=== PATIENT | female | born 1950 | race African-American/Black ===

== ENCOUNTER 2017-05-22 15:15 | Inpatient (IN) | payer OTHER ==
[2017-05-22 15:51] LABS: Hemoglobin 16.2 g/dL (12.0-16.0); Mean Corpuscular HGB CONC 32.7 g/dL (32.0-36.0); Mean Corpuscular Hemoglobin 31.4 pg (27.0-31.0); Mean Corpuscular Volume 96.1 fl (81.0-99.0); Mean Platelet Volume 7.8 fL (7.4-10.4); Platelet Count 140 thou/uL (130-400); RBC Distribution Width 12.5 % (11.5-14.5); Red Blood Cell (RBC) Count 5.16 mill/uL (4.20-5.40); White Blood Cell (WBC) Count 3.7 thou/uL (4.8-10.8)
--- NOTE | 2017-05-22 15:52 | RAD ---
FRONTAL VIEW CHEST: COMPARISON: 08/02/11. INDICATION: Dyspnea, shortness of breath with cardiac arrhythmia. FINDINGS: There is diffuse pulmonary parenchymal consolidation throughout the right lung with relative sparring at the apex. There is also a prominent region of alveolar infiltration and interstitial opacificati on of the left perihilar region of the mid to lower left lung. Densities overlying the aortic silhou ette indicate vascular calcification, grossly stable. The cardiac silhouette is within normal limits of size. IMPRESSION: Multifocal bilateral pulmonary parenchymal consolidation. This could be on the basis of atypical pne umonia or asymmetric edema. Recommend continued imaging followup. POS: GERARD
[2017-05-22 15:55] LABS: Actual Bicarbonate (HCO3a) 22.1 mEq/L (22-26); Base Excess (BEa) -2.5 mEq/L (0 (+/-) 2.5); CO2 Tension 37.9 mmHg (35.0-45.0); Hemoglobin (Hb) 16.2 g/dL (12.0-16.0); O2 Tension (PaO2) 58.9 mmHg (80.0-100.0); pH, Arterial 7.38 (7.35-7.45)
[2017-05-22 15:56] LABS: Calcium, Ionized 1.1 mmol/L (1.12-1.30)
[2017-05-22 15:57] LABS: ALV-art Gradient 177.325 (0-20); Analyzer IN Cardio ER; Puncture Site LRA
[2017-05-22] MEDS ORDERED: methylPREDNISolone Sod Succ/PF 125 MG/2 ML VIAL ONE (15:57)
[2017-05-22] MEDS ORDERED: Nitroglycerin 2% Ointment 1 INCH/1 GM Packet ONE (15:57)
[2017-05-22] MEDS ORDERED: Pantoprazole 40 MG VIAL ONE (16:00)
[2017-05-22] MEDS ORDERED: Magnesium Sulfate 2 GM/100 ML BAG ONE (16:00)
[2017-05-22 16:11] LABS: CKMB 0.7 ng/mL (0-6.6); Troponin I 0.028 ng/mL (< 0.028)
[2017-05-22 16:15] LABS: AST (SGOT) 20 U/L (5-34); Albumin 3.1 g/dL (3.4-4.8); Alkaline Phosphatase 100 U/L (40-150); Anion Gap 16 mmol/L (10-20); BUN (Urea Nitrogen) 23 mg/dL (9.8-20.1); Bilirubin, Total 0.4 mg/dL (0.2-1.2); CK (CPK) 109 U/L (29-168); Calc. Creatinine Clearance 0 mL/min (70-130); Calcium 8.2 mg/dL (7.8-10.44); Carbon Dioxide 22 mmol/L (23-31); Chloride 99 mmol/L (98-107); Estimated GFR-MDRD 58; Globulin 3.3 g/dL (2.4-3.5); Glucose 207 mg/dL (80-115); Lipase Less than 4 U/L (8-78); Magnesium 1.3 mg/dL (1.6-2.6); Protein, Total 6.4 g/dL (6.0-8.3); Sodium 134 mmol/L (136-145)
[2017-05-22 16:21] LABS: Band 14 % (5-11); Lymphocytes 32 % (21-51); MDiff Complete? YES; Metamyelocyte 6 % (0-0); Monocytes 2 % (0-10); Myelocyte 5 % (0-0); Neutrophil 41 % (42-75); PLT Morphology Comment Appears Adequate
[2017-05-22 16:33] LABS: Potassium 2.6 mmol/L (3.5-5.1)
[2017-05-22] MEDS ORDERED: Ondansetron HCl/PF 4 MG/2 ML Vial ONE ×2 (16:46→16:48)
[2017-05-22 16:47] LABS: ALT (SGPT) 8 U/L (8-55)
[2017-05-22] MEDS ORDERED: NS 0.9% w/ 20 MEQ KCL 1,000 ML IV SCH (17:00)
[2017-05-22] MEDS ORDERED: Ondansetron HCl/PF 4 MG/2 ML Vial IVP PRN (17:36)
[2017-05-22] MEDS ORDERED: Acetaminophen 325 MG TAB PO PRN (17:36)
[2017-05-22] MEDS ORDERED: Ondansetron ODT 4 MG TAB PO PRN (17:36)
[2017-05-22] MEDS ORDERED: Albuterol Sulfate 2.5 mg/3 ml Neb NEB PRN (17:40)
[2017-05-22] MEDS ORDERED: CEFTRIAXONE 2GM/50 ML BAG 2 GM in Premix Bag 1 BAG IVPB SCH (17:45)
[2017-05-22] MEDS ORDERED: Azithromycin 500 MG in Sodium Chloride 0.9% 250 ML 250 ML IVPB SCH (17:45)
[2017-05-22] MEDS ORDERED: Potassium Chloride 20 MEQ TAB ONE (18:19)
[2017-05-22] MEDS ORDERED: [UNRECOGNIZED DRUG - REMARK] IVPB PRN (18:22)
[2017-05-22] MEDS ORDERED: Piperacillin/Tazobactam 4.5 GM in Sodium Chloride 0.9% 100 ML IVPB SCH (18:30)
[2017-05-22] MEDS ORDERED: Vancomycin HCl 1.5 GM in Sodium Chloride 0.9% 250 ML 300 ML IVPB SCH (20:00)
[2017-05-22 20:23] LABS: Lactic Acid 3.3 mmol/L (0.5-2.2)
[2017-05-22] MEDS ORDERED: Vancomycin HCl 1 GM in Sodium Chloride 0.9% 250 ML 250 ML IVPB SCH (21:00)
[2017-05-22] MEDS: Sodium Chloride 0.9% 1,000 ML IV SCH ×2 (21:46→21:55)
[2017-05-22] MEDS: Famotidine/PF 20 mg/2ml Vial SLOW IVP SCH (21:55)
[2017-05-22 21:58] LABS: Hemoglobin A1c 5.8 % (4.0-6.0)
[2017-05-22] MEDS: Melatonin 3 MG TAB PO PRN (23:14)
--- NOTE | 2017-05-22 23:54 | HP-2 ---
LOCATION: [facility] in [place], [place]. DATE OF SERVICE: 05/22/2017 ADMITTING ATTENDING AND CO-SIGNER: Anoop Rasmussen M.D. CODE STATUS: FULL. PRIMARY CARE PHYSICIAN: Dr. Martha Umaña M.D. ATTENDING PHYSICIAN: Dr. Anoop Rasmussen M.D. RESIDENT PHYSICIAN: Rory Byers D.O. HISTORIAN: History provided by the patient. CHIEF COMPLAINT: Increasing shortness of breath. HISTORY OF PRESENT ILLNESS: A 66-year-old female with past medical history of hypertension, hyperlip idemia, and [id number] history who presents with 4-day history of increasing shortness of breath, d yspnea on exertion, paroxysmal nocturnal dyspnea, orthopnea with associated dry cough, rhinorrhea, co ngestion, fever, nausea and vomiting. The patient denies sick contacts, increased swelling or edema, arthralgias, myalgias, syncopal episode, palpitations and chest pain. The patient denies having a f dexter shot this year as well as denies sick contacts. Reports the shortness of breath is worse with exe rtion and denies any remitting factors. In the ER, the patient was given 125 mg of Solu-Medrol, [address] li [address] normal saline, nitro ointment, Zofran and Protonix. Blood cultures were drawn and was started on IV Rocephin and azithromycin. PAST MEDICAL HISTORY: Hypertension, hyperlipidemia, thyroid nodule and hyperglycemia. PAST SURGICAL HISTORY: Appendectomy, hysterectomy, colonoscopy. ALLERGIES: No known drug allergies. MEDICATIONS: 1. Naprosyn 500 mg, 1 tab b.i.d. 2. Hydrochlorothiazide 25 mg 1 tab daily. 3. Potassium chloride extended release 10 mEq daily. 4. Pravastatin 40 mg 1 tab at bedtime. 5. Verapamil 180 mg extended release daily. FAMILY HISTORY: Unknown. SOCIAL HISTORY: The patient has a 1-pack per day smoking history, and a [id number] history. Denie s alcohol use. Marital status, single. Ill contacts, denies. REVIEW OF SYSTEMS: GENERAL: The patient complains of fever. Denies chills. Complains of fatigue. EYES: Denies vision change. ENT: Complains of nasal congestion, rhinorrhea. Denies sore throat. RESPIRATORY: Complains of cough, shortness of breath. Denies congestion. CARDIOVASCULAR: Denies chest pain, palpitations or edema. Complains of paroxysmal nocturnal dyspnea and orthopnea. GASTROINTESTINAL: Complains of nausea and vomiting. Denies diarrhea, constipation or abdominal pain . GENITOURINARY: Denies dysuria. SKIN: Denies rashes. MUSCULOSKELETAL: Denies arthritis or arthralgias. NEUROLOGIC: Denies numbness or syncope. Complains of weakness. PHYSICAL EXAMINATION: VITAL SIGNS: Blood pressure 98/64, pulse 126, respiratory rate 22, T-max 98.7, pulse ox 96% on BiPAP and current weight 90 kilograms. GENERAL: Alert and oriented x3, moderately distressed, well-nourished and obese, appropriately inter active. EYES: Pupils are equal, round, reactive to light with accommodation. Extraocular muscles intact. C onjunctiva within normal limits. ENT: BiPAP mask in place. NECK: Supple, without lymphadenopathy, no thyromegaly. CARDIOVASCULAR: Tachycardic, regular rhythm. No murmurs, rubs or gallops. Radial pulse 2+, pedal p ulses 2+. RESPIRATORY: Increased effort, diffuse crackles, expiratory wheezes with poor inspiratory effort and diminished right-sided breath sounds. SKIN: Warm and dry. No cyanosis or lesions. ABDOMEN: Soft, nontender, normoactive bowel sounds in all 4 quadrants. No masses, distention or org anomegaly. EXTREMITIES: Clubbing. No cyanosis or edema. MUSCULOSKELETAL: Structure within normal limits. Tone within normal limits. NEUROLOGIC: No focal deficits. Cranial nerves II-XII are intact. GCS 15. PSYCHIATRIC: Appropriately interactive. LABORATORY DATA: White blood cells 2.7, hemoglobin 16.2, hematocrit 49.6, platelets 140. Sodium 134 , potassium 2.6, chloride 99, bicarbonate 22, BUN 23, creatinine 1.14, glucose 207, calcium 8.2, tota l protein 6.4, albumin 3.1, AST 20, alkaline phosphatase 100, total bilirubin 0.4, lactic acid 5.8, m agnesium 1.3, ammonia 26, 14% bands with 41% neutrophils. On CBC: CK-MB is 0.7, troponin is 0.028, lipase less than 4 and BNP 120.8. ABG showed a pH of 7.38, pCO2 of 37.9 and pO2 of 58.9. EKG showed sinus tachycardia with PACs, with rate of 140 and possible left anterior fascicular block. This was a poor study. Chest x-ray showed multifocal bilateral pulmonary parenchymal consolidation, pneumonia versus edema. ASSESSMENT AND PLAN: 1. Acute hypoxic respiratory failure secondary to sepsis, community-acquired pneumonia versus viral pneumonia. The patient will be admitted to IM on BiPAP. We will maintain sats above 88%, wean as tolerated and the patient will be continued on IV antibiotics of Rocephin, azithromycin, prednisone 4 0 mg per day. We will order a rapid flu test. DuoNebs will be given q.4 hours scheduled as well as albuterol q.2 hours p.r.n., Procalcitonin is pending, repeat EKG. 2. Severe sepsis. Lactic acid is 5.8. White blood cells 3.7, respiratory rate 22. We will admit t o the IMCU. The patient was given normal saline at 150 mL per hour as well as IV Rocephin and erythr omycin. Maintain MAP above 65. Repeat in a.m. BMP, CBC, EKG and magnesium. 3. Leukopenia, likely secondary to #2. 4. Hypokalemia. The patient was given 40 mEq of oral potassium as well as 20 mEq with normal saline bolus. 5. Hypomagnesemia. The patient was given 2 grams of mag sulfate in the ED. We will recheck in the a.m. 6. Hyperglycemia. No history of diabetes. We will check A1c when the patient stabilizes. 7. Lactic acidosis secondary to #1 and 2. The patient was given IV fluid, normal saline 150 as well as normal saline bolus x2. 8. Prophylaxis. The patient will be placed on Lovenox and Pepcid for deep venous thrombosis and gas trointestinal prophylaxis respectively. DISPOSITION/LENGTH OF HOSPITAL STAY: Greater than or equal 2 days. Condition guarded. Symptomatic medication will be provided. History and physical exam as well as management was discussed with Dr. Anoop Rasmussen, who agrees with the above history and physical exam, assessment and plan unless otherwise noted in his addendum.
--- NOTE | 2017-05-22 23:59 | ADD-HP ---
Please see the history and physical done by the music industry intern for which I concur. The patient was seen, carol renteriaated, examined, and discussed with the resident at bedside. CHIEF COMPLAINT: Shortness of breath. HISTORY OF PRESENT ILLNESS: A 66-year-old comes in with about a 4-day history of low-grade fever, co ugh, and progressive shortness of breath. She came into the ER and stated she could not breathe, and so was put on BiPAP. Chest x-ray showed a pretty dense pneumonia on the right side and a little bit on the left side as well. She is a pretty heavy smoker, but it does not sound like she definitely h as a huge COPD or asthma history. In the ER, she was started on ceftriaxone and Zithromax for pneumo shanna and presumed possible sepsis and is being admitted to the IMCU on BiPAP. She was also found to h ave low magnesium and potassium, which were being replaced through IV. PAST MEDICAL HISTORY: All per the resident's history and physical for which I concur. CURRENT HOME MEDICATIONS: All per the resident's history and physical for which I concur. SOCIAL HISTORY: All per the resident's history and physical for which I concur. REVIEW OF SYSTEMS: All per the resident's history and physical for which I concur. PHYSICAL EXAMINATION: VITAL SIGNS: Breathing fairly comfortable on BiPAP, is able to talk through it, satting currently in the mid 90s on the BiPAP. HEENT: Conjunctivae are not particularly pale. Oropharynx is really unobtainable secondary to the B iPAP mask. CHEST: Significant for crackles bilaterally, worse on the right than the left, worse at the bases. CARDIOVASCULAR: Pulse rate is around 110, but regular and distant. ABDOMEN: Benign. EXTREMITIES: Showed no edema. IMAGING: Chest x-ray did show a large infiltrate on the right, some left mid and lower infiltrate on the left. LABORATORY DATA: Initial blood workup, potassium is low at 2.6, bicarbonate little bit low at 22. L actic acid level was high at 5.8. BNP was only slightly elevated at 120 and we do not have a compari son on that. Blood gas looks like it was done on the BiPAP, pH 7.38, pCO2 of 38, pO2 of 59. CBC: W pancho count low at 3.7, hemoglobin okay at 16.2, platelets of 140, has 41% neutrophils, does have 14 b ands. ASSESSMENT AND PLAN: 1. Pneumonia and possible sepsis. Plan is IV Rocephin, fluids, azithromycin. Continue the BiPAP in the IMCU, oxygen bleed in, nebulizers, prednisone, and Tylenol p.r.n. 2. History of hypertension. Obviously, we are going to hold off on any home blood pressure medicine s. Obviously, I am going to try to obtain more medical records. Otherwise, we will replace celena leach and monitor her closely in the IMCU. She does not look that clinically ill, but her chest x-ray is worrisome. Especially, we have to give her some fluids, where it is going to look a little bit w orrisome. It looks like she also got vancomycin in the emergency room. She is also going to be put on Lovenox and Pepcid prophylactically.
[2017-05-23] MEDS ORDERED: Sodium Chloride 0.9% 1,000 ML IV SCH
[2017-05-23 01:29] LABS: Lactic Acid 2.4 mmol/L (0.5-2.2)
[2017-05-23] MEDS ORDERED: Piperacillin/Tazobactam 4.5 GM in Sodium Chloride 0.9% 100 ML IVPB SCH (02:00)
[2017-05-23 04:46] LABS: Lactic Acid 2.8 mmol/L (0.5-2.2)
[2017-05-23 04:49] LABS: Anion Gap 15 mmol/L (10-20); BUN (Urea Nitrogen) 19 mg/dL (9.8-20.1); Calc. Creatinine Clearance 93 mL/min (70-130); Calcium 7.6 mg/dL (7.8-10.44); Carbon Dioxide 18 mmol/L (23-31); Chloride 106 mmol/L (98-107); Estimated GFR-MDRD 87; Glucose 176 mg/dL (80-115); Magnesium 1.9 mg/dL (1.6-2.6); Potassium 3.9 mmol/L (3.5-5.1); Sodium 135 mmol/L (136-145)
[2017-05-23 05:01] LABS: Band 28 % (5-11); Hemoglobin 15.6 g/dL (12.0-16.0); Lymphocytes 23 % (21-51); MDiff Complete? YES; Mean Corpuscular HGB CONC 32.8 g/dL (32.0-36.0); Mean Corpuscular Hemoglobin 32.2 pg (27.0-31.0); Mean Corpuscular Volume 98.1 fl (81.0-99.0); Mean Platelet Volume 8.1 fL (7.4-10.4); Metamyelocyte 9 % (0-0); Monocytes 12 % (0-10); Myelocyte 5 % (0-0); Neutrophil 23 % (42-75); PLT Morphology Comment Appears Decreased; Platelet Count 118 thou/uL (130-400); RBC Distribution Width 12.9 % (11.5-14.5); Red Blood Cell (RBC) Count 4.84 mill/uL (4.20-5.40); White Blood Cell (WBC) Count 4.7 thou/uL (4.8-10.8)
[2017-05-23] MEDS: Sodium Chloride 0.9% 1,000 ML IV SCH ×3 (06:27→20:31)
--- NOTE | 2017-05-23 07:42 | PDOC.FM ---
- Subjective Subjective: Patient said that she continued to feel better with the bipap overnight. SOB is main issue, but she feels better where she would like to eat this AM. She denies chest pain. no N/V/D. - Objective MAR Reviewed: Yes Vital Signs & Weight: Vital Signs (12 hours) Temp Pulse Resp BP Pulse Ox 05/23/17 07:28 97.2 F L 80 31 H 97/66 95 05/23/17 07:24 78 28 H 95 05/23/17 07:23 79 28 H 95 05/23/17 04:00 83 27 H 101/67 94 L 05/23/17 02:49 77 26 H 93 L 05/23/17 00:00 97.2 F L 79 19 108/62 90 L 05/22/17 22:44 83 31 H 92 L 05/22/17 20:35 97.6 F 89 25 H 93 L 05/22/17 20:15 97.6 F 89 35 H 88/54 L 93 L Weight Weight 86.545 kg I&O: 05/22/17 05/23/17 05/24/17 06:59 06:59 06:59 Intake Total 2500 Output Total 550 Balance 1950 Result Diagrams: 05/23/17 03:35 05/23/17 03:35 EKG Reviewed by me: Yes Radiology Reviewed by me: Yes Phys Exam - Physical Examination midl WOB with some accessory muscle use and tachypnea,otherwise NAD HEENT: PERRLA did not remove bipap Neck: no nodes, no JVD, supple, full ROM Respiratory: no wheezing Crackles faint, better air movement. Cardiovascular: RRR, no significant murmur, no rub Gastrointestinal: soft, non-tender, no distention, positive bowel sounds Musculoskeletal: no edema, pulses present Neurological: non-focal, normal sensation, moves all 4 limbs Lymphatic: no nodes Psychiatric: normal affect, A&O x 3 Skin: no rash, normal turgor, cap refill <2 seconds Dx/Plan (1) Severe sepsis Code(s): A41.9 - SEPSIS, UNSPECIFIED ORGANISM; R65.20 - SEVERE SEPSIS WITHOUT SEPTIC SHOCK Status: Acute (2) Lobar pneumonia Code(s): J18.1 - LOBAR PNEUMONIA, UNSPECIFIED ORGANISM Status: Acute (3) Acute respiratory failure with hypoxia Code(s): J96.01 - ACUTE RESPIRATORY FAILURE WITH HYPOXIA Status: Acute (4) COPD (chronic obstructive pulmonary disease) Status: Suspected (5) Hypokalemia Code(s): E87.6 - HYPOKALEMIA Status: Resolved (6) HTN (hypertension) Code(s): I10 - ESSENTIAL (PRIMARY) HYPERTENSION Status: Chronic Qualifiers: Hypertension type: essential hypertension Qualified Code(s): I10 - Essential (primary) hypertension Plan: holding BP meds until BP is not low normal range - Plan Plan: # Hypoxic respiratory failure and severe sepsis from lobar pneumonia- Continue azithromycin and Rocephin. Continue fluids. Lactate has downtrended. Patient still tachypneic and has accessory muscle use but may be able to transition to nasal cannula for hypoxia today. Will wait on pulm recommendations before trial off bipap this AM. # COPD, suspected- Patient has long smoking hx and just quit several weeks ago. no previous diagnosis but some wheezing on previous exam. will continue duonebs and steroids
[2017-05-23] MEDS ORDERED: predniSONE 20 MG TAB PO SCH (08:00)
[2017-05-23] MEDS ORDERED: Prevnar 13-Val Conj/PF 0.5 ML SYRINGE IM ONE (09:00)
[2017-05-23] MEDS ORDERED: FLU VACC TS2017-18 (>65YR) 0.5 ML SYRINGE IM ONE (09:00)
[2017-05-23] MEDS: Azithromycin 250 MG TAB PO SCH (09:04)
[2017-05-23] MEDS: Famotidine/PF 20 mg/2ml Vial SLOW IVP SCH ×2 (09:05→20:32)
[2017-05-23] MEDS: Enoxaparin Sodium 40 MG/0.4 ML SYRINGE SC SCH (09:05)
[2017-05-23] MEDS: cefTRIAXone\\ROCEPHIN 1 GM, Syringe 0.4 ML in Sterile Water 9.6 ML SLOW IVP SCH (18:02)
[2017-05-23] MEDS ORDERED: cefTRIAXone\\ROCEPHIN 1 GM in Sodium Chloride 0.9% 100 ML IVPB SCH (18:30)
--- NOTE | 2017-05-23 19:23 | ADD-PRG ---
ADDENDUM DATE OF SERVICE: 05/23/2017 Please see the note from Dr. Cuellar for which I concur. The patient was seen, evaluated, examined, and discussed with the resident by bedside. Ms. Connell overnight did improve, less short of breath, was able to actually get off the BiPAP and is tolerating nasal cannula currently, afebrile, blood pre ssure has increased. So, is continuing on same antibiotics for the pneumonia and suspected sepsis an d bacteremia, likely from the pneumonia and will continue on supportive oxygen probably in the form o f Ventimask and BiPAP if needed again and appreciate pulmonary help, her lungs still have crackles bi laterally, but moving better air in the last night and a lot more comfortable.
[2017-05-23] MEDS: Melatonin 3 MG TAB PO PRN (21:16)
--- NOTE | 2017-05-23 22:42 | CON ---
PULMONARY CRITICAL CARE NOTE DATE OF CONSULTATION: 05/23/2017 HISTORY OF PRESENT ILLNESS: Ms. Connell is a 66-year-old female. She looks younger than her age. Sh tere presented with complaints of cough, chest congestion and shortness of breath. She also had subject zari fever, nausea and vomiting at home. She says she has not been around anybody with the flu. She subsequently was admitted last night and placed on BiPAP. I evaluated her today. We took her off BiPAP for a while, but she gradually became more and more hypoxemic and actually stat ed she felt more comfortable on BiPAP. PAST MEDICAL HISTORY: Remarkable for hypertension, lipid disorder, diabetes and thyroid nodule. PAST SURGICAL HISTORY: Remarkable for hysterectomy, appendectomy and colonoscopy. ALLERGIES: She reports no drug allergies. SOCIAL HISTORY: She is a pack a day smoker. She is not a daily drinker. She does not use drugs. FAMILY HISTORY: Negative for lung disease at an early age. MEDICATIONS: She is on Naprosyn, hydrochlorothiazide, potassium, pravastatin and K-Lyte prior to adm ission. REVIEW OF SYSTEMS: Otherwise, 12-point negative other than the above complaints. PHYSICAL EXAMINATION: GENERAL: She actually looks more comfortable than I expected after reviewing her radiograph. Heart rate seems in the 80s, oximetry is 93%, blood pressure 161/85 and respiratory rate is in the 20s. HEENT: Pupils are equal. Sclerae is anicteric. LUNGS: Remarkable for crackles bilaterally and diffusely. HEART: Regular rhythm. S1 and S2 are normal. ABDOMEN: Soft and nontender. EXTREMITIES: Without clubbing, cyanosis or edema. LABORATORY AND X-RAY FINDINGS: Chest radiograph reviewed by me shows a very dense patchy bilateral i nfiltrates that are alveolar. White count is 4.7, hemoglobin 15.6 and platelets 118,000. She has 28 % bands on a peripheral smear, 9% metamyelocytes and 5% myelocytes. Blood gas; pH 7.38, CO2 of 37 an d pO2 of 58 yesterday afternoon. IMPRESSION AND PLAN: 1. Community-acquired pneumonia that is bilateral. 2. Acute respiratory failure. 3. Numerous immature cells on her peripheral smear. I suspect this is an acute phase reaction and n ot indicative of leukemia, but this will need to be monitored. I have recommended transfer to the itical Care Unit for ongoing close support. She certainly may get worse before she gets better. She will continue with antimicrobial therapy, steroids and nebulizer treatments. Hopefully, we will see significant improvement in the next 24-48 hours. She should be treated with intravenous steroids in my opinion. Everything possible should be given intravenously at this point until she turns corner. She can have liquids with her BiPAP off for brief periods, but I would not feed her solid diet at t his point given her requirements for BiPAP. Critical care time with multiple exams this morning on and off BiPAP, 30 minutes.
[2017-05-23] MEDS: hydrOXYzine 25 MG TAB PO PRN (23:29)
[2017-05-24] MEDS: Sodium Chloride 0.9% 1,000 ML IV SCH ×2 (03:49→11:29)
[2017-05-24 04:06] LABS: Anion Gap 10 mmol/L (10-20); BUN (Urea Nitrogen) 15 mg/dL (9.8-20.1); Calc. Creatinine Clearance 113 mL/min (70-130); Calcium 7.9 mg/dL (7.8-10.44); Carbon Dioxide 24 mmol/L (23-31); Chloride 108 mmol/L (98-107); Estimated GFR-MDRD Greater than 90; Glucose 137 mg/dL (80-115); Potassium 3.6 mmol/L (3.5-5.1); Sodium 138 mmol/L (136-145)
[2017-05-24 04:10] LABS: Band 32 % (5-11); Hemoglobin 14.3 g/dL (12.0-16.0); Lymphocytes 8 % (21-51); MDiff Complete? YES; Mean Corpuscular HGB CONC 32.4 g/dL (32.0-36.0); Mean Corpuscular Hemoglobin 31.3 pg (27.0-31.0); Mean Corpuscular Volume 96.5 fl (81.0-99.0); Metamyelocyte 3 % (0-0); Monocytes 3 % (0-10); Neutrophil 54 % (42-75); PLT Morphology Comment Appears Decreased; Platelet Count 108 thou/uL (130-400); RBC Distribution Width 12.7 % (11.5-14.5); Red Blood Cell (RBC) Count 4.55 mill/uL (4.20-5.40); White Blood Cell (WBC) Count 10.6 thou/uL (4.8-10.8)
[2017-05-24] MEDS ORDERED: Zolpidem Tartrate 5 MG TAB PO SCH (08:45)
[2017-05-24] MEDS: Famotidine/PF 20 mg/2ml Vial SLOW IVP SCH ×2 (09:02→20:23)
[2017-05-24] MEDS: Enoxaparin Sodium 40 MG/0.4 ML SYRINGE SC SCH (09:02)
[2017-05-24] MEDS: Azithromycin 250 MG TAB PO SCH (09:04)
--- NOTE | 2017-05-24 11:30 | PDOC.FM ---
- Subjective Subjective: Patient needed bipap for most of last night. She had stable breathing and heart rate and she says she feels like her breathing is better than when she first came in. - Objective MAR Reviewed: Yes Vital Signs & Weight: Vital Signs (12 hours) Temp Pulse Resp Pulse Ox 05/24/17 10:39 77 05/24/17 10:38 80 31 H 94 L 05/24/17 08:00 97.6 F 77 24 H 94 L 05/24/17 06:35 68 05/24/17 06:33 79 29 H 93 L 05/24/17 05:00 98.2 F 05/24/17 02:48 78 05/24/17 02:47 82 27 H 92 L 05/24/17 00:00 97.3 F L Weight Weight 86.545 kg Most Recent Monitor Data Heart Rate from ECG 74 NIBP 106/69 NIBP BP-Mean 84 Respiration from ECG 25 SpO2 94 I&O: 05/23/17 05/24/17 05/25/17 06:59 06:59 06:59 Intake Total 2500 4274 Output Total 550 845 100 Balance 1950 3429 -100 Result Diagrams: 05/24/17 03:26 05/24/17 03:26 EKG Reviewed by me: Yes Radiology Reviewed by me: Yes Phys Exam - Physical Examination Constitutional: NAD HEENT: PERRLA, moist MMs Neck: no nodes faint crackles, moderate air movement. Cardiovascular: RRR, no significant murmur, no rub Gastrointestinal: soft, non-tender, no distention, positive bowel sounds Musculoskeletal: no edema, pulses present Neurological: non-focal, normal sensation, moves all 4 limbs Psychiatric: normal affect, A&O x 3 Skin: no rash, cap refill <2 seconds Dx/Plan (1) Severe sepsis Code(s): A41.9 - SEPSIS, UNSPECIFIED ORGANISM; R65.20 - SEVERE SEPSIS WITHOUT SEPTIC SHOCK Status: Acute (2) Lobar pneumonia Code(s): J18.1 - LOBAR PNEUMONIA, UNSPECIFIED ORGANISM Status: Acute (3) Acute respiratory failure with hypoxia Code(s): J96.01 - ACUTE RESPIRATORY FAILURE WITH HYPOXIA Status: Acute (4) COPD (chronic obstructive pulmonary disease) Status: Suspected (5) Hypokalemia Code(s): E87.6 - HYPOKALEMIA Status: Resolved (6) HTN (hypertension) Code(s): I10 - ESSENTIAL (PRIMARY) HYPERTENSION Status: Chronic Qualifiers: Hypertension type: essential hypertension Qualified Code(s): I10 - Essential (primary) hypertension Plan: holding BP meds until BP is not low normal range - Plan Plan: # Hypoxic respiratory failure and severe sepsis from lobar pneumonia- Continue azithromycin and Rocephin. Continue fluids. Lactate has downtrended. Patient still tachypneic and has accessory muscle use and needed bipap for most of yesterday. I would plan on Bipap all of today and tonight with exceptions for taking PO fluids unless pulmonology thinks she is improved enough to transistion. Her respiratory status is not comprimising her mental status whatsoever. # COPD, suspected- Patient has long smoking hx and just quit several weeks ago. no previous diagnosis but some wheezing on previous exam. will continue duonebs and IV steroids. #anxiety/poor sleep on bipap- Will trial low dose ambien tonight to help patient rest.
[2017-05-24] MEDS ORDERED: Sodium Chloride 0.9% 1,000 ML IV SCH ×2 (11:35→12:00)
--- NOTE | 2017-05-24 12:11 | PRG ---
DATE OF SERVICE: 05/24/2017 SUBJECTIVE: Nima looks better. She denies being short of breath. She will try with mask off. OBJECTIVE: VITAL SIGNS: Blood pressure 110/70, heart rate 88, respiratory rates in the high 20s, oximetry is 94 . LUNGS: Remarkable for crackles bilaterally. HEART: Regular rhythm. ABDOMEN: Soft. LABORATORY DATA: White count 10.6, hemoglobin 14.3, platelets 108. Sodium 138, potassium 3.6, chloride 108, bicarbonate 24, BUN 15, creatinine 0.66. Intake and output is positive 3429. Cut her fluids back to TKO. IMPRESSION: Pneumonia with probably early acute respiratory distress syndrome with bilateral bacteri al pneumonia, most likely Streptococcus even though cultures are negative. This may have been trigge red by flu influenza. If she tolerates being off BiPAP, we will advance her diet. I would like for her to sleep on BiPAP. Critical care time was 30 minutes.
[2017-05-24] MEDS ORDERED: Furosemide 20 MG/2 ML VIAL SLOW IVP SCH (13:15)
[2017-05-24] MEDS ORDERED: Albumin 25% 25 GM/100 ML BOT IVPB SCH (13:15)
--- NOTE | 2017-05-24 14:02 | PRG ---
Ms. Connell did not do well without BiPAP. Sats were in the low 80s with 50% facemask, we placed her back on BiPAP. Given that she has a decent blood pressure and 3-1/2 liter positive fluid balance, we will try one dose of Lasix to see if this helps with her gas exchange and work of breathing.
--- NOTE | 2017-05-24 15:21 | ADD-PRG ---
DATE OF SERVICE: 05/24/2017 ADDENDUM Please see the note from Dr. Cuellar which I concur. The patient was seen and examined and evaluated with the residents by bedside. Basically, patient for the most part has been on BiPAP for the last 24 hours as Ventimask was not controlling her breathing well enough and receiving nebulizers and Zosy n and vancomycin for pneumonia. Blood pressure has been stable and seems to be doing okay from a res piratory status on the BiPAP. Chest still has crackles scattered throughout, but seems better air mo vement and less crackles and then yesterday evening no other changes on exam and so we will continue same BiPAP management, antibiotics and appreciate pulmonary input.
[2017-05-24] MEDS: cefTRIAXone\\ROCEPHIN 1 GM, Syringe 0.4 ML in Sterile Water 9.6 ML SLOW IVP SCH (18:09)
[2017-05-24] MEDS: guaiFENesin/DM ER PO PRN (22:23)
[2017-05-25 06:01] LABS: Anion Gap 11 mmol/L (10-20); BUN (Urea Nitrogen) 17 mg/dL (9.8-20.1); Calc. Creatinine Clearance 113 mL/min (70-130); Calcium 8.5 mg/dL (7.8-10.44); Carbon Dioxide 24 mmol/L (23-31); Chloride 107 mmol/L (98-107); Estimated GFR-MDRD Greater than 90; Glucose 156 mg/dL (80-115); Potassium 3.4 mmol/L (3.5-5.1); Sodium 139 mmol/L (136-145)
[2017-05-25 06:28] LABS: Hemoglobin 13.5 g/dL (12.0-16.0); Mean Corpuscular HGB CONC 32.6 g/dL (32.0-36.0); Mean Corpuscular Hemoglobin 31.5 pg (27.0-31.0); Mean Corpuscular Volume 96.7 fl (81.0-99.0); Mean Platelet Volume 9.2 fL (7.4-10.4); Platelet Count 112 thou/uL (130-400); RBC Distribution Width 12.9 % (11.5-14.5); Red Blood Cell (RBC) Count 4.29 mill/uL (4.20-5.40); White Blood Cell (WBC) Count 13.1 thou/uL (4.8-10.8)
[2017-05-25 07:30] LABS: Band 18 % (5-11); Lymphocytes 3 % (21-51); MDiff Complete? YES; Monocytes 3 % (0-10); Neutrophil 76 % (42-75); PLT Morphology Comment Appears Decreased; RBC Morphology Normal
[2017-05-25] MEDS: Enoxaparin Sodium 40 MG/0.4 ML SYRINGE SC SCH (09:15)
[2017-05-25] MEDS: Famotidine/PF 20 mg/2ml Vial SLOW IVP SCH ×2 (09:15→21:15)
--- NOTE | 2017-05-25 09:53 | PDOC.FM ---
- Subjective Subjective: Patient reports doing about the same overnight. Endorses continued SOB, denies CP, RAM, N/V. Continues to require bipap and desats after a minute or 2 on RA. - Objective MAR Reviewed: Yes Vital Signs & Weight: Vital Signs (12 hours) Temp Pulse Pulse Ox 05/25/17 08:00 96.7 F L 05/25/17 07:37 66 95 05/25/17 04:00 98.2 F 05/25/17 02:58 67 05/24/17 23:00 97.8 F 05/24/17 22:50 80 93 L Weight Weight 86.545 kg Most Recent Monitor Data Heart Rate from ECG 76 NIBP 133/84 NIBP BP-Mean 102 Respiration from ECG 27 SpO2 95 I&O: 05/24/17 05/25/17 05/26/17 06:59 06:59 06:59 Intake Total 4274 1352 Output Total 845 1680 70 Balance 7391 -601 -70 Result Diagrams: 05/25/17 05:15 05/25/17 05:15 <Landon Garnett - Last Filed: 05/25/17 09:51> - Objective Vital Signs & Weight: Vital Signs (12 hours) Temp Pulse Pulse Ox 05/25/17 19:29 61 95 05/25/17 19:27 95 05/25/17 16:00 97 F L 05/25/17 14:01 66 05/25/17 11:00 96.7 F L 05/25/17 10:19 62 Weight Weight 86.545 kg Most Recent Monitor Data Heart Rate from ECG 65 NIBP 146/86 NIBP BP-Mean 125 Respiration from ECG 27 SpO2 93 I&O: 05/24/17 05/25/17 05/26/17 06:59 06:59 06:59 Intake Total 4274 1352 645 Output Total 845 1680 7595 Balance 5419 -502 -7824 Result Diagrams: 05/25/17 05:15 05/25/17 05:15 <Diandra Hirsch - Last Filed: 05/25/17 22:16> Phys Exam - Physical Examination Constitutional: NAD diffuse wheezing Cardiovascular: RRR, no significant murmur Gastrointestinal: soft, non-tender Musculoskeletal: no edema, pulses present Neurological: normal sensation, moves all 4 limbs Psychiatric: normal affect, A&O x 3 <Landon Garnett - Last Filed: 05/25/17 09:51> Dx/Plan (1) Acute respiratory failure with hypoxia Code(s): J96.01 - ACUTE RESPIRATORY FAILURE WITH HYPOXIA Status: Acute Plan: continue on bipap and try to wean off throughout the day as tolerated Pulmonology consulted, recs greatly appreciated (2) Lobar pneumonia Code(s): J18.1 - LOBAR PNEUMONIA, UNSPECIFIED ORGANISM Status: Acute Plan: continue on azithromycin and rocephin (3) Severe sepsis Code(s): A41.9 - SEPSIS, UNSPECIFIED ORGANISM; R65.20 - SEVERE SEPSIS WITHOUT SEPTIC SHOCK Status: Acute Plan: vital signs are appropriate overnight (4) HTN (hypertension) Code(s): I10 - ESSENTIAL (PRIMARY) HYPERTENSION Status: Chronic QualifierTitle: Hypertension type: essential hypertension Qualified Code( s): I10 - Essential (primary) hypertension (5) Hypokalemia Code(s): E87.6 - HYPOKALEMIA Status: Resolved Plan: replace <Landon Garnett - Last Filed: 05/25/17 09:51> Attending Addendum - Attending Addendum I personally evaluated the patient and discussed the management with Dr. Garnett. I agree with the History, Examination, Assessment and Plan documented above with any addition or exceptions noted below. Patient still requiring bipap. Will repeat CXR. Continue antibiotics for CAP. Replace potassium. <Diandra Hirsch - Last Filed: 05/25/17 22:16>
[2017-05-25 10:46] LABS: Lactic Acid 1.4 mmol/L (0.5-2.2)
[2017-05-25] MEDS ORDERED: Potassium Chloride 40 MEQ in Sodium Chloride 0.9% 500 ML IVPB SCH (11:00)
[2017-05-25] MEDS: Azithromycin 250 MG TAB PO SCH (11:41)
[2017-05-25] MEDS ORDERED: Furosemide 40 MG/4 ML VIAL SLOW IVP SCH (12:00)
--- NOTE | 2017-05-25 13:24 | PRG ---
Ms. Connell tolerated little diuresis yesterday without a change in her vital signs. PHYSICAL EXAMINATION: VITAL SIGNS: Heart rate is in the 60s. Blood pressure 133/84, heart rate 76. She is tolerating BiP AP. LUNGS: Still remarkable for diffuse crackles. HEART: Regular rhythm. ABDOMEN: Soft. We will start giving her small sips of Ensure for nutrition. She does not show any signs of needing to be intubated at this time. She does not tolerate being off BiPAP for very long. IMPRESSION: Severe bilateral community-acquired pneumonia, slowly improving. PLAN: Gentle diuresis. Continue antimicrobial therapy and respiratory care, etc.
--- NOTE | 2017-05-25 13:52 | RAD ---
PORTABLE CHEST: HISTORY: Pneumonia. Followup CCU. COMPARISON: 05/22/17. FINDINGS: There are bilateral infiltrates again noted. Heart is mildly prominent in size. Small effusions can not be excluded. IMPRESSION: Bilateral interstitial and alveolar infiltrates most prominent in the right upper and right lower lob es but also seen in the left mid and lower lung do not appear significantly changed from the 05/22/17 film. POS: [facility]
[2017-05-25] MEDS: cefTRIAXone\\ROCEPHIN 1 GM, Syringe 0.4 ML in Sterile Water 9.6 ML SLOW IVP SCH (17:16)
[2017-05-26] MEDS: hydrOXYzine 25 MG TAB PO PRN ×2 (03:10→20:52)
[2017-05-26] MEDS: Melatonin 3 MG TAB PO PRN ×2 (03:10→20:52)
[2017-05-26 04:25] LABS: Anion Gap 15 mmol/L (10-20); BUN (Urea Nitrogen) 21 mg/dL (9.8-20.1); Calc. Creatinine Clearance 120 mL/min (70-130); Calcium 8.8 mg/dL (7.8-10.44); Carbon Dioxide 28 mmol/L (23-31); Chloride 104 mmol/L (98-107); Estimated GFR-MDRD Greater than 90; Glucose 134 mg/dL (80-115); Potassium 3.5 mmol/L (3.5-5.1); Sodium 143 mmol/L (136-145)
[2017-05-26 04:44] LABS: Band 3 % (5-11); Hemoglobin 13.9 g/dL (12.0-16.0); Lymphocytes 7 % (21-51); MDiff Complete? YES; Mean Corpuscular HGB CONC 32.1 g/dL (32.0-36.0); Mean Corpuscular Hemoglobin 30.9 pg (27.0-31.0); Mean Corpuscular Volume 96.2 fl (81.0-99.0); Mean Platelet Volume 8.8 fL (7.4-10.4); Monocytes 4 % (0-10); Myelocyte 1 % (0-0); Neutrophil 85 % (42-75); PLT Morphology Comment Appears Decreased; Platelet Count 114 thou/uL (130-400); RBC Distribution Width 12.9 % (11.5-14.5); Red Blood Cell (RBC) Count 4.51 mill/uL (4.20-5.40)
[2017-05-26] MEDS: Enoxaparin Sodium 40 MG/0.4 ML SYRINGE SC SCH (08:44)
[2017-05-26] MEDS: Azithromycin 250 MG TAB PO SCH (08:44)
[2017-05-26] MEDS: Famotidine/PF 20 mg/2ml Vial SLOW IVP SCH ×2 (08:45→20:53)
--- NOTE | 2017-05-26 11:19 | PDOC.FM ---
- Subjective Subjective: Patient has had minimal changes overnight, slightly improved. Did have some agitation overnight on the bipap, improved with melatonin and hydroxizine. No CP , N/V. - Objective MAR Reviewed: Yes Vital Signs & Weight: Vital Signs (12 hours) Temp Pulse Resp Pulse Ox 05/26/17 08:00 98.5 F 73 28 H 94 L 05/26/17 07:16 64 05/26/17 04:00 97.6 F 05/26/17 03:11 68 93 L 05/26/17 00:00 98.0 F Weight Weight 88.1 kg Most Recent Monitor Data Heart Rate from ECG 59 NIBP 154/78 NIBP BP-Mean 114 Respiration from ECG 20 SpO2 95 I&O: 05/25/17 05/26/17 05/27/17 06:59 06:59 06:59 Intake Total 1352 1098 360 Output Total 1680 3025 233 Balance -984 -8701 127 Result Diagrams: 05/26/17 03:46 05/26/17 03:46 <Landon Garnett - Last Filed: 05/26/17 11:17> - Objective Vital Signs & Weight: Vital Signs (12 hours) Temp Pulse Resp Pulse Ox 05/27/17 11:04 91 L 05/27/17 11:03 71 25 H 91 L 05/27/17 08:00 97.7 F 66 23 H 91 L 05/27/17 07:45 62 05/27/17 04:00 97.8 F 05/27/17 03:10 60 20 95 05/27/17 00:00 97.4 F L Weight Weight 87 kg Most Recent Monitor Data Heart Rate from ECG 62 NIBP 156/90 NIBP BP-Mean 129 Respiration from ECG 25 SpO2 87 I&O: 05/26/17 05/27/17 05/28/17 06:59 06:59 06:59 Intake Total 1098 1315 Output Total 3025 3140 1025 Balance -9805 -1820 -5705 Result Diagrams: 05/27/17 05:35 05/27/17 05:35 <iDandra Hirsch - Last Filed: 05/27/17 11:11> Phys Exam - Physical Examination Constitutional: NAD HEENT: PERRLA dry oral mucosa mild crackles diffusely Cardiovascular: RRR, no significant murmur Gastrointestinal: soft, non-tender Musculoskeletal: no edema, pulses present Neurological: normal sensation, moves all 4 limbs Psychiatric: normal affect, A&O x 3 <Landon Garnett - Last Filed: 05/26/17 11:17> Dx/Plan (1) Acute respiratory failure with hypoxia Code(s): J96.01 - ACUTE RESPIRATORY FAILURE WITH HYPOXIA Status: Acute Plan: continue on bipap and try to wean off throughout the day as tolerated Pulmonology consulted, recs greatly appreciated will consider lasix to improve respiratory status (2) Lobar pneumonia Code(s): J18.1 - LOBAR PNEUMONIA, UNSPECIFIED ORGANISM Status: Acute Plan: continue on azithromycin and rocephin (3) Severe sepsis Code(s): A41.9 - SEPSIS, UNSPECIFIED ORGANISM; R65.20 - SEVERE SEPSIS WITHOUT SEPTIC SHOCK Status: Acute Plan: vital signs are appropriate overnight (4) HTN (hypertension) Code(s): I10 - ESSENTIAL (PRIMARY) HYPERTENSION Status: Chronic QualifierTitle: Hypertension type: essential hypertension Qualified Code( s): I10 - Essential (primary) hypertension (5) Hypokalemia Code(s): E87.6 - HYPOKALEMIA Status: Resolved Plan: improved on recheck <Landon Garnett - Last Filed: 05/26/17 11:17> Attending Addendum - Attending Addendum I personally evaluated the patient and discussed the management with Dr. Garnett. I agree with the History, Examination, Assessment and Plan documented above with any addition or exceptions noted below. The patient remains on bipap. She will get another dose of IV lasix. monitor potassium. Continue to wean if able. Continue antibiotics. <Diandra Hirsch - Last Filed: 05/27/17 11:11>
[2017-05-26] MEDS ORDERED: Furosemide 40 MG/4 ML VIAL SLOW IVP SCH (12:00)
[2017-05-26] MEDS: cefTRIAXone\\ROCEPHIN 1 GM, Syringe 0.4 ML in Sterile Water 9.6 ML SLOW IVP SCH (18:53)
--- NOTE | 2017-05-26 23:12 | PRG ---
DATE OF SERVICE: 05/26/2017 SUBJECTIVE: Ko says she is feeling better. OBJECTIVE: VITAL SIGNS: She still mostly on the BiPAP. Heart rate is in the 70s, respiratory rate is 18, oxime try is 96, blood pressure 160/98. LUNGS: Remarkable for bilateral crackles. Intake and output was negative 1926, last 24 hours. IMPRESSION: 1. Pneumonia. 2. Component of noncardiogenic edema. 3. Respiratory muscle fatigue and hypoxemia, stable on BiPAP. She is still receiving intermittent n utrition via sips of Ensure. Hopefully, we can decrease time on BiPAP tomorrow significantly.
[2017-05-27 05:58] LABS: Anion Gap 15 mmol/L (10-20); BUN (Urea Nitrogen) 24 mg/dL (9.8-20.1); Calc. Creatinine Clearance 115 mL/min (70-130); Calcium 9.1 mg/dL (7.8-10.44); Carbon Dioxide 31 mmol/L (23-31); Chloride 98 mmol/L (98-107); Estimated GFR-MDRD Greater than 90; Glucose 146 mg/dL (80-115); Potassium 3.1 mmol/L (3.5-5.1); Sodium 141 mmol/L (136-145)
[2017-05-27] MEDS ORDERED: Potassium Chloride 40 MEQ in Sodium Chloride 0.9% 250 ML 250 ML IVPB SCH (06:45)
[2017-05-27 07:28] LABS: Band 6 % (5-11); Hemoglobin 14.8 g/dL (12.0-16.0); Lymphocytes 14 % (21-51); MDiff Complete? YES; Mean Corpuscular HGB CONC 32.2 g/dL (32.0-36.0); Mean Corpuscular Volume 96.2 fl (81.0-99.0); Mean Platelet Volume 8.8 fL (7.4-10.4); Metamyelocyte 1 % (0-0); Monocytes 8 % (0-10); Myelocyte 2 % (0-0); Neutrophil 65 % (42-75); PLT Morphology Comment Appears Decreased; Platelet Count 120 thou/uL (130-400); RBC Distribution Width 12.8 % (11.5-14.5); Reactive Lymphocytes 4 % (0-10); Red Blood Cell (RBC) Count 4.79 mill/uL (4.20-5.40); Vacuoles SLIGHT; White Blood Cell (WBC) Count 8.3 thou/uL (4.8-10.8)
[2017-05-27] MEDS: Famotidine/PF 20 mg/2ml Vial SLOW IVP SCH (08:04)
[2017-05-27] MEDS: Enoxaparin Sodium 40 MG/0.4 ML SYRINGE SC SCH (08:05)
--- NOTE | 2017-05-27 08:18 | RAD ---
CHEST ONE VIEW: History: Dyspnea. Follow up. Comparison: 05-25-17 FINDINGS: Cardiac silhouette is magnified and upper limits of normal. Pulmonary vasculature remains engorged. W idespread reticular nodular interstitial prominence and patchy bilateral infiltrates are less pronoun petra than on the prior exam. Mediastinum is midline. No evidence of pneumothorax. classroom monitor lead s overlie the chest. IMPRESSION: Interval improved aeration of the lungs. Decreased pulmonary edema. POS: [facility]
[2017-05-27] MEDS ORDERED: hydrALAZINE 20 MG/ML VIAL SLOW IVP PRN (08:31)
--- NOTE | 2017-05-27 08:36 | PDOC.FM ---
- Subjective Subjective: Patient reports minimal change in breathing troubles overnight. Unable to tolerate weaning off the vent yesterday and was mostly kept on bipap overnight. Denies CP, SOB, N/V. - Objective MAR Reviewed: Yes Vital Signs & Weight: Vital Signs (12 hours) Temp Pulse Resp Pulse Ox 05/27/17 08:00 97.7 F 05/27/17 07:45 62 05/27/17 04:00 97.8 F 05/27/17 03:10 60 20 95 05/27/17 00:00 97.4 F L 05/26/17 22:35 78 18 96 05/26/17 22:30 98.0 F 65 18 94 L Weight Weight 87 kg Most Recent Monitor Data Heart Rate from ECG 66 NIBP 180/105 NIBP BP-Mean 158 Respiration from ECG 23 SpO2 91 I&O: 05/26/17 05/27/17 05/28/17 06:59 06:59 06:59 Intake Total 1098 1315 Output Total 3025 3140 450 Balance -1927 -1825 -450 Result Diagrams: 05/27/17 05:35 05/27/17 05:35 <Landon Garnett - Last Filed: 05/27/17 08:34> - Objective Vital Signs & Weight: Vital Signs (12 hours) Temp Pulse Resp Pulse Ox 05/27/17 11:04 91 L 05/27/17 11:03 71 25 H 91 L 05/27/17 08:00 97.7 F 66 23 H 91 L 05/27/17 07:45 62 05/27/17 04:00 97.8 F 05/27/17 03:10 60 20 95 05/27/17 00:00 97.4 F L Weight Weight 87 kg Most Recent Monitor Data Heart Rate from ECG 69 NIBP 160/96 NIBP BP-Mean 139 Respiration from ECG 20 SpO2 90 I&O: 05/26/17 05/27/17 05/28/17 06:59 06:59 06:59 Intake Total 1098 1315 Output Total 3025 3140 1350 Qian Xiao'er -1927 -1825 -1350 Result Diagrams: 05/27/17 05:35 05/27/17 05:35 <Diandra Hirsch - Last Filed: 05/27/17 11:28> Phys Exam - Physical Examination Respiratory: no wheezing, clear to auscultation bilateral Cardiovascular: RRR, no significant murmur Gastrointestinal: soft, non-tender Musculoskeletal: no edema, pulses present Neurological: normal sensation, moves all 4 limbs Psychiatric: normal affect <Landon Garnett - Last Filed: 05/27/17 08:34> Dx/Plan (1) Acute respiratory failure with hypoxia Code(s): J96.01 - ACUTE RESPIRATORY FAILURE WITH HYPOXIA Status: Acute Plan: continue on bipap and try to wean off throughout the day as tolerated Pulmonology consulted, recs greatly appreciated (2) Lobar pneumonia Code(s): J18.1 - LOBAR PNEUMONIA, UNSPECIFIED ORGANISM Status: Acute Plan: continue on azithromycin and rocephin (3) Severe sepsis Code(s): A41.9 - SEPSIS, UNSPECIFIED ORGANISM; R65.20 - SEVERE SEPSIS WITHOUT SEPTIC SHOCK Status: Acute (4) HTN (hypertension) Code(s): I10 - ESSENTIAL (PRIMARY) HYPERTENSION Status: Chronic QualifierTitle: Hypertension type: essential hypertension Qualified Code( s): I10 - Essential (primary) hypertension Plan: will add prn meds along with home meds (5) Hypokalemia Code(s): E87.6 - HYPOKALEMIA Status: Resolved Plan: will replace today <Landon Garnett - Last Filed: 05/27/17 08:34> Attending Addendum - Attending Addendum I personally evaluated the patient and discussed the management with Dr. Garnett on 05/27/17. I agree with the History, Examination, Assessment and Plan documented above with any addition or exceptions noted below. Patient is off bipap this morning. Will replace potassium. REceived additional lasix this am. Will try to advance diet as tolerated. <Diandra Hirsch - Last Filed: 05/27/17 11:28>
[2017-05-27] MEDS ORDERED: Furosemide 40 MG/4 ML VIAL ONE (09:01)
[2017-05-27] MEDS: Azithromycin 250 MG TAB PO SCH (10:04)
[2017-05-27] MEDS: Hydrochlorothiazide 25 MG TAB PO SCH (10:04)
[2017-05-27] MEDS ORDERED: Furosemide 40 MG/4 ML VIAL SLOW IVP SCH (13:45)
--- NOTE | 2017-05-27 18:07 | PRG ---
DATE OF SERVICE: 05/27/2017 Nima Connell had blood pressure in the 170 this morning on BiPAP, we gave 40 of Lasix. She diuresed 2 liters. She was taken off BiPAP, placed on facemask and did well throughout the day. We will slee p her on BiPAP tonight so she gets muscle rest. OBJECTIVE: LUNGS: Still remarkable for diffuse crackles. HEART: Regular rhythm. ABDOMEN: Soft. EXTREMITIES: Without asymmetry. IMPRESSION: 1. Pneumonia with adult respiratory distress syndrome. 2. Hypertension. 3. Respiratory failure, acute. She has done well with BiPAP. Hopefully, we will see decreasing use of BiPAP over the next 24-48 hours.
[2017-05-27] MEDS: cefTRIAXone\\ROCEPHIN 1 GM, Syringe 0.4 ML in Sterile Water 9.6 ML SLOW IVP SCH (18:21)
[2017-05-27] MEDS: Famotidine 20 MG TAB PO SCH (20:26)
[2017-05-27] MEDS: Melatonin 3 MG TAB PO PRN (23:45)
[2017-05-27] MEDS: hydrOXYzine 25 MG TAB PO PRN (23:46)
[2017-05-28 06:41] LABS: BUN (Urea Nitrogen) 28 mg/dL (9.8-20.1); Calc. Creatinine Clearance 105 mL/min (70-130); Calcium 9.4 mg/dL (7.8-10.44); Estimated GFR-MDRD Greater than 90; Glucose 204 mg/dL (80-115)
[2017-05-28 06:44] LABS: Hemoglobin 15.3 g/dL (12.0-16.0); Mean Corpuscular HGB CONC 33.2 g/dL (32.0-36.0); Mean Corpuscular Hemoglobin 31.8 pg (27.0-31.0); Mean Corpuscular Volume 95.8 fl (81.0-99.0); Mean Platelet Volume 9.2 fL (7.4-10.4); Platelet Count 141 thou/uL (130-400); RBC Distribution Width 12.5 % (11.5-14.5); Red Blood Cell (RBC) Count 4.79 mill/uL (4.20-5.40); White Blood Cell (WBC) Count 7.5 thou/uL (4.8-10.8)
[2017-05-28 06:50] LABS: Anion Gap 12 mmol/L (10-20); Carbon Dioxide 37 mmol/L (23-31); Chloride 95 mmol/L (98-107); Potassium 3.8 mmol/L (3.5-5.1); Sodium 140 mmol/L (136-145)
[2017-05-28 07:29] LABS: Band 7 % (5-11); Lymphocytes 17 % (21-51); MDiff Complete? YES; Metamyelocyte 2 % (0-0); Monocytes 3 % (0-10); Myelocyte 1 % (0-0); Neutrophil 57 % (42-75); PLT Morphology Comment Appears Adequate; Reactive Lymphocytes 13 % (0-10); Vacuoles MODERATE
[2017-05-28] MEDS: Hydrochlorothiazide 25 MG TAB PO SCH (09:25)
[2017-05-28] MEDS: Famotidine 20 MG TAB PO SCH ×2 (09:25→20:50)
[2017-05-28] MEDS: Enoxaparin Sodium 40 MG/0.4 ML SYRINGE SC SCH (09:25)
[2017-05-28] MEDS: Azithromycin 250 MG TAB PO SCH (09:25)
--- NOTE | 2017-05-28 10:55 | PDOC.FM ---
- Subjective Subjective: Patient continues to improve, was able to use ventimask some yesterday, but did require bipap overnight. Resting this morning on ventimask with O2 saturation > 92%. Denies N/V, CP. - Objective MAR Reviewed: Yes Vital Signs & Weight: Vital Signs (12 hours) Temp Pulse Resp Pulse Ox 05/28/17 08:00 98.4 F 87 23 H 92 L 05/28/17 06:34 73 21 H 95 05/28/17 04:00 98.1 F 05/28/17 02:29 76 16 05/28/17 00:00 97.7 F 94 L Weight Weight 85 kg Most Recent Monitor Data Heart Rate from ECG 65 NIBP 151/88 NIBP BP-Mean 118 Respiration from ECG 20 SpO2 90 I&O: 05/27/17 05/28/17 05/29/17 06:59 06:59 06:59 Intake Total 1315 979 60 Output Total 3140 2435 100 Conductor -1822 -1456 -40 Result Diagrams: 05/28/17 05:55 05/28/17 05:55 <Landon Garnett - Last Filed: 05/28/17 10:53> - Objective Vital Signs & Weight: Vital Signs (12 hours) Temp Pulse Resp Pulse Ox 05/28/17 08:00 98.4 F 87 23 H 92 L 05/28/17 06:34 73 21 H 95 05/28/17 04:00 98.1 F 05/28/17 02:29 76 16 05/28/17 00:00 97.7 F 94 L Weight Weight 85 kg Most Recent Monitor Data Heart Rate from ECG 65 NIBP 151/88 NIBP BP-Mean 118 Respiration from ECG 20 SpO2 90 I&O: 05/27/17 05/28/17 05/29/17 06:59 06:59 06:59 Intake Total 1315 979 60 Output Total 3140 2435 100 Balance -1825 -1456 -40 Result Diagrams: 05/28/17 05:55 05/28/17 05:55 <Diandra Hirsch - Last Filed: 05/28/17 11:04> Phys Exam - Physical Examination Constitutional: NAD ventimask in place Respiratory: no wheezing, clear to auscultation bilateral Cardiovascular: RRR, no significant murmur Gastrointestinal: soft, non-tender Musculoskeletal: no edema, pulses present Neurological: normal sensation, moves all 4 limbs Psychiatric: normal affect <Landon Garnett - Last Filed: 05/28/17 10:53> Dx/Plan (1) Acute respiratory failure with hypoxia Code(s): J96.01 - ACUTE RESPIRATORY FAILURE WITH HYPOXIA Status: Acute Plan: continue to wean off bipap throughout the day as tolerated Pulmonology consulted, recs greatly appreciated Will await pulm recs for deescalating care (2) Lobar pneumonia Code(s): J18.1 - LOBAR PNEUMONIA, UNSPECIFIED ORGANISM Status: Acute Plan: continue on azithromycin and rocephin (3) Severe sepsis Code(s): A41.9 - SEPSIS, UNSPECIFIED ORGANISM; R65.20 - SEVERE SEPSIS WITHOUT SEPTIC SHOCK Status: Resolved Plan: seems to have resolved (4) HTN (hypertension) Code(s): I10 - ESSENTIAL (PRIMARY) HYPERTENSION Status: Chronic QualifierTitle: Hypertension type: essential hypertension Qualified Code( s): I10 - Essential (primary) hypertension Plan: stable (5) Hypokalemia Code(s): E87.6 - HYPOKALEMIA Status: Resolved Plan: better today, continue to monitor <Landon Garnett - Last Filed: 05/28/17 10:53> Attending Addendum - Attending Addendum I personally evaluated the patient and discussed the management with Dr. Garnett. I agree with the History, Examination, Assessment and Plan documented above with any addition or exceptions noted below. The patient is back to a venti-mask. She is quite sleepy after receiving melatonin and atarax. Will stop the atarax. Continue antibiotics. If patient does well this morning, can likely transfer to the floor. <Diandra Hirsch - Last Filed: 05/28/17 11:04>
[2017-05-28] MEDS: cefTRIAXone\\ROCEPHIN 1 GM, Syringe 0.4 ML in Sterile Water 9.6 ML SLOW IVP SCH (18:13)
--- NOTE | 2017-05-28 18:55 | PRG ---
DATE OF SERVICE: 05/28/2017 SUBJECTIVE: Nima Connell continues to feel better on a daily basis. He spent a lot more time on BiP AP and slept with BiPAP last night. She was in no distress when I evaluated. OBJECTIVE: VITAL SIGNS: Blood pressure 125/74, heart rate 86, respiratory rate 20, oximetry is 88 to 93. She h as facemask O2 on. LUNGS: Remarkable for crackles at both bases. CARDIOVASCULAR: Regular rhythm. ABDOMEN: Soft. LABORATORY: White count 7.5, hemoglobin 15.3, platelets 141. Sodium 140, potassium 3.8, chloride 95 , bicarbonate 37, BUN 28, creatinine 0.7. IMPRESSION: 1. Pneumonia, after a viral illness, most likely pneumococcus. 2. Noncardiogenic pulmonary edema. 3. Respiratory failure, requiring noninvasive ventilatory support. 4. Weakness and deconditioning with this illness. PLAN: Continue supportive care with nocturnal BiPAP. She appears to be improving on a daily basis.
[2017-05-28] MEDS: Melatonin 3 MG TAB PO PRN (20:49)
[2017-05-28] MEDS: hydrOXYzine 25 MG TAB PO PRN (20:49)
[2017-05-29 05:07] LABS: BUN (Urea Nitrogen) 28 mg/dL (9.8-20.1); Calc. Creatinine Clearance 109 mL/min (70-130); Calcium 9.2 mg/dL (7.8-10.44); Estimated GFR-MDRD Greater than 90; Glucose 142 mg/dL (80-115)
[2017-05-29 05:09] LABS: Band 2 % (5-11); Hemoglobin 15.1 g/dL (12.0-16.0); Lymphocytes 16 % (21-51); MDiff Complete? YES; Mean Corpuscular HGB CONC 32.6 g/dL (32.0-36.0); Mean Corpuscular Hemoglobin 31.4 pg (27.0-31.0); Mean Corpuscular Volume 96.3 fl (81.0-99.0); Mean Platelet Volume 8.6 fL (7.4-10.4); Metamyelocyte 2 % (0-0); Monocytes 11 % (0-10); Myelocyte 2 % (0-0); Neutrophil 67 % (42-75); PLT Morphology Comment Appears Adequate; Platelet Count 149 thou/uL (130-400); RBC Distribution Width 12.6 % (11.5-14.5); Red Blood Cell (RBC) Count 4.81 mill/uL (4.20-5.40); White Blood Cell (WBC) Count 8.1 thou/uL (4.8-10.8)
[2017-05-29 05:16] LABS: Anion Gap 16 mmol/L (10-20); Carbon Dioxide 33 mmol/L (23-31); Chloride 96 mmol/L (98-107); Potassium 3.7 mmol/L (3.5-5.1); Sodium 141 mmol/L (136-145)
[2017-05-29 05:37] VITALS: BMI 30.2
--- NOTE | 2017-05-29 06:55 | PDOC.FM ---
- Subjective Subjective: Patient did well overnight. When going to bed, she refused bipap and wanted to use ventimask which she reported is more comfortable. O2 saturation overnight on the ventimask has been in an acceptable range, >90%. No N/V, CP. - Objective MAR Reviewed: Yes Vital Signs & Weight: Vital Signs (12 hours) Temp Pulse Resp Pulse Ox 05/29/17 06:17 100 05/29/17 06:14 73 18 100 05/29/17 05:00 98.2 F 05/29/17 02:40 73 24 H 93 L 05/29/17 00:00 98.4 F 05/28/17 22:09 79 20 92 L 05/28/17 20:00 98.3 F 79 20 93 L 05/28/17 19:00 98.3 F Weight Weight 85.4 kg Most Recent Monitor Data Heart Rate from ECG 69 NIBP 175/98 NIBP BP-Mean 104 Respiration from ECG 18 SpO2 100 I&O: 05/27/17 05/28/17 05/29/17 06:59 06:59 06:59 Intake Total 1315 979 660 Output Total 3140 2435 725 Balance -1825 -1456 -65 Result Diagrams: 05/29/17 04:08 05/29/17 04:08 <Landon Garnett - Last Filed: 05/29/17 06:53> - Objective Vital Signs & Weight: Vital Signs (12 hours) Temp Pulse Resp Pulse Ox 05/29/17 08:00 98.3 F 90 23 H 100 05/29/17 06:17 100 05/29/17 06:14 73 18 100 05/29/17 05:00 98.2 F 05/29/17 02:40 73 24 H 93 L 05/29/17 00:00 98.4 F 05/28/17 22:09 79 20 92 L Weight Weight 85.4 kg Most Recent Monitor Data Heart Rate from ECG 88 NIBP 135/87 NIBP BP-Mean 109 Respiration from ECG 24 SpO2 98 I&O: 05/28/17 05/29/17 05/30/17 06:59 06:59 06:59 Intake Total 979 660 240 Output Total 2435 725 70 [id number] 65 170 Result Diagrams: 05/29/17 04:08 05/29/17 04:08 <Diandra Hirsch - Last Filed: 05/29/17 09:41> Phys Exam - Physical Examination Constitutional: NAD resting comfortably HEENT: PERRLA mild wheezing throughout Cardiovascular: RRR, no significant murmur Gastrointestinal: soft, non-tender Musculoskeletal: no edema, pulses present Neurological: moves all 4 limbs Psychiatric: normal affect, A&O x 3 <Landon Garnett - Last Filed: 05/29/17 06:53> Dx/Plan (1) Acute respiratory failure with hypoxia Code(s): J96.01 - ACUTE RESPIRATORY FAILURE WITH HYPOXIA Status: Acute Plan: continue to wean off bipap throughout the day as tolerated Pulmonology consulted, recs greatly appreciated (2) Lobar pneumonia Code(s): J18.1 - LOBAR PNEUMONIA, UNSPECIFIED ORGANISM Status: Acute Plan: continue on azithromycin and rocephin (3) Severe sepsis Code(s): A41.9 - SEPSIS, UNSPECIFIED ORGANISM; R65.20 - SEVERE SEPSIS WITHOUT SEPTIC SHOCK Status: Resolved Plan: seems to have resolved (4) HTN (hypertension) Code(s): I10 - ESSENTIAL (PRIMARY) HYPERTENSION Status: Chronic QualifierTitle: Hypertension type: essential hypertension Qualified Code( s): I10 - Essential (primary) hypertension Plan: stable (5) Hypokalemia Code(s): E87.6 - HYPOKALEMIA Status: Resolved Plan: better today, continue to monitor <Landon Garnett - Last Filed: 05/29/17 06:53> Attending Addendum - Attending Addendum I personally evaluated the patient and discussed the management with Dr. Garnett. I agree with the History, Examination, Assessment and Plan documented above with any addition or exceptions noted below. The patient refused bipap overnight. We discussed the reasoning behind wanting her to use bipap at night. She is on oxygen a 4L/min this morning. Slowly feeling better. Will continue to wean O2 as tolerated. <Diandra Hirsch - Last Filed: 05/29/17 09:41>
[2017-05-29] MEDS: Enoxaparin Sodium 40 MG/0.4 ML SYRINGE SC SCH (08:41)
[2017-05-29] MEDS: Azithromycin 250 MG TAB PO SCH (08:41)
[2017-05-29] MEDS: Famotidine 20 MG TAB PO SCH ×2 (08:41→20:33)
[2017-05-29] MEDS: Hydrochlorothiazide 25 MG TAB PO SCH (08:41)
--- NOTE | 2017-05-29 11:14 | PRG ---
DATE OF SERVICE: 05/29/2017 Ms. Connell was not placed on BiPAP last night. She likes sleeping with BiPAP, feels like she gets better rest. PHYSICAL EXAMINATION: VITAL SIGNS: Heart rate 87, respiratory rate 14, oximetry is 97, blood pressure 130/92. LUNGS: Lungs remarkable for coarse equal breath sounds. HEART: Regular rhythm. ABDOMEN: Soft. LABORATORY DATA: White count 8.1, hemoglobin 15.1, platelets 149. Sodium 141, potassium 3.7, chloride 96, bicarbonate 33, BUN 20, creatinine 0.6, glucose 142. IMPRESSION: 1. Pneumonia with adult respiratory distress syndrome. 2. Influenza, most likely leading up to this, although her flu swab was negative. PLAN: Continue with nocturnal noninvasive support. We will try to switch her to a nasal cannula tod ay. Her BiPAP can go on about 10 in the evening.
[2017-05-29] MEDS: cefTRIAXone\\ROCEPHIN 1 GM, Syringe 0.4 ML in Sterile Water 9.6 ML SLOW IVP SCH (17:26)
[2017-05-29] MEDS: Melatonin 3 MG TAB PO PRN (22:37)
[2017-05-30 05:45] LABS: Anion Gap 11 mmol/L (10-20); BUN (Urea Nitrogen) 25 mg/dL (9.8-20.1); Calc. Creatinine Clearance 108 mL/min (70-130); Calcium 8.8 mg/dL (7.8-10.44); Carbon Dioxide 35 mmol/L (23-31); Chloride 97 mmol/L (98-107); Estimated GFR-MDRD Greater than 90; Glucose 165 mg/dL (80-115); Potassium 3.9 mmol/L (3.5-5.1); Sodium 139 mmol/L (136-145)
[2017-05-30 06:36] LABS: Band 5 % (5-11); Hemoglobin 14.7 g/dL (12.0-16.0); Lymphocytes 18 % (21-51); MDiff Complete? YES; Mean Corpuscular HGB CONC 32.5 g/dL (32.0-36.0); Mean Corpuscular Hemoglobin 31.4 pg (27.0-31.0); Mean Corpuscular Volume 96.4 fl (81.0-99.0); Mean Platelet Volume 9.2 fL (7.4-10.4); Metamyelocyte 2 % (0-0); Monocytes 9 % (0-10); Neutrophil 65 % (42-75); PLT Morphology Comment Appears Adequate; Platelet Count 169 thou/uL (130-400); RBC Distribution Width 12.5 % (11.5-14.5); RBC Morphology Normal; Reactive Lymphocytes 1 % (0-10); Red Blood Cell (RBC) Count 4.68 mill/uL (4.20-5.40); White Blood Cell (WBC) Count 8.3 thou/uL (4.8-10.8)
--- NOTE | 2017-05-30 07:09 | PDOC.FM ---
- Subjective Subjective: Patient did well overnight. She initially refused bipap, but then agreed to wear it. After 4 hours she said it was too uncomfortable so she refused and was placed on NC. O2 saturation was >90% throughout the rest of the night. No N/V, CP, BM. Endorses flatus and was able to tolerate food yesterday. - Objective MAR Reviewed: Yes Vital Signs & Weight: Vital Signs (12 hours) Temp Pulse Resp Pulse Ox 05/30/17 06:59 94 L 05/30/17 06:57 78 17 94 L 05/30/17 04:00 98.6 F 94 L 05/30/17 02:56 72 16 99 05/29/17 23:56 98.8 F 05/29/17 23:23 80 18 97 05/29/17 20:00 98.6 F 86 22 H 93 L Weight Weight 83.7 kg Most Recent Monitor Data Heart Rate from ECG 78 NIBP 115/61 NIBP BP-Mean 77 Respiration from ECG 22 SpO2 95 I&O: 05/29/17 05/30/17 05/31/17 06:59 06:59 06:59 Intake Total 660 970 Output Total 725 1035 Balance -65 -65 Result Diagrams: 05/30/17 03:44 05/30/17 03:44 <Landon Garnett - Last Filed: 05/30/17 07:09> - Objective Vital Signs & Weight: Vital Signs (12 hours) Temp Pulse Resp Pulse Ox 05/30/17 13:19 86 16 95 05/30/17 10:15 98.4 F 91 22 H 93 L 05/30/17 07:50 98.3 F 94 22 H 92 L 05/30/17 07:00 98.3 F 05/30/17 06:59 94 L 05/30/17 06:57 78 17 94 L 05/30/17 04:00 98.6 F 94 L 05/30/17 02:56 72 16 99 Weight Weight 83.7 kg Most Recent Monitor Data Heart Rate from ECG 88 NIBP 103/72 NIBP BP-Mean 79 Respiration from ECG 18 SpO2 97 I&O: 05/29/17 05/30/17 05/31/17 06:59 06:59 06:59 Intake Total 660 970 250 Output Total 725 1035 110 Balance -65 -65 140 Result Diagrams: 05/30/17 03:44 05/30/17 03:44 <Diandra Hirsch - Last Filed: 05/30/17 14:09> Phys Exam - Physical Examination Constitutional: NAD mild crackles Cardiovascular: RRR, no significant murmur Gastrointestinal: soft, positive bowel sounds Musculoskeletal: pulses present Neurological: normal sensation, moves all 4 limbs Psychiatric: normal affect, A&O x 3 <Landon Garnett - Last Filed: 05/30/17 07:09> Dx/Plan (1) Acute respiratory failure with hypoxia Code(s): J96.01 - ACUTE RESPIRATORY FAILURE WITH HYPOXIA Status: Acute Plan: Pulmonology consulted, recs greatly appreciated continue to monitor O2 saturation as we decrease support (2) Lobar pneumonia Code(s): J18.1 - LOBAR PNEUMONIA, UNSPECIFIED ORGANISM Status: Acute Plan: continue on azithromycin and rocephin (3) Severe sepsis Code(s): A41.9 - SEPSIS, UNSPECIFIED ORGANISM; R65.20 - SEVERE SEPSIS WITHOUT SEPTIC SHOCK Status: Resolved Plan: seems to have resolved (4) HTN (hypertension) Code(s): I10 - ESSENTIAL (PRIMARY) HYPERTENSION Status: Chronic QualifierTitle: Hypertension type: essential hypertension Qualified Code( s): I10 - Essential (primary) hypertension Plan: stable (5) Hypokalemia Code(s): E87.6 - HYPOKALEMIA Status: Resolved Plan: better today, continue to monitor <Landon Garnett - Last Filed: 05/30/17 07:09> Attending Addendum - Attending Addendum I personally evaluated the patient and discussed the management with Dr. Garnett. I agree with the History, Examination, Assessment and Plan documented above with any addition or exceptions noted below. Patient will transfer out of the ICU. The patient is doing better. Wean O2. <Diandra Hirsch - Last Filed: 05/30/17 14:09>
[2017-05-30] MEDS: Azithromycin 250 MG TAB PO SCH (08:00)
[2017-05-30] MEDS: Enoxaparin Sodium 40 MG/0.4 ML SYRINGE SC SCH (08:01)
[2017-05-30] MEDS: Hydrochlorothiazide 25 MG TAB PO SCH (08:01)
[2017-05-30] MEDS: Famotidine 20 MG TAB PO SCH ×2 (08:01→20:13)
--- NOTE | 2017-05-30 08:35 | PRG ---
DATE OF SERVICE: 05/30/2017 She had a good night. She is awake and alert and has no acute complaints. PHYSICAL EXAMINATION: VITAL SIGNS: Temperature is 98.6, pulse 78, blood pressure 115/61, O2 sat 95%. Total intake for 24 hours 70, output 1035. HEENT: Unremarkable. NECK: No adenopathy or JVD. LUNGS: Inspiratory crackles bilaterally. CARDIOVASCULAR: S1 and S2 regular, without murmur. ABDOMEN: Soft and nontender. EXTREMITIES: No clubbing, cyanosis, or edema. SKIN: No skin lesions. NEURO: Mental status; she is awake and alert. LABORATORY DATA: White blood cell count 8.3, hemoglobin 14, hematocrit 45, platelet count 169. [place] um 139, potassium 3.9, chloride 97, CO2 35, BUN 25, creatinine 0.6, glucose 165. ASSESSMENT: 1. Bilateral pneumonia, most likely secondary to influenza originally. 2. Adult respiratory distress syndrome which is resolving. PLAN: Given that she is no longer needing mechanical ventilatory support she could be transferred ou t to the floor. Physical therapy will be initiated.
[2017-05-30] MEDS ORDERED: Konsyl 12 gm Packet PO PRN (11:00)
[2017-05-30] MEDS: cefTRIAXone\\ROCEPHIN 1 GM, Syringe 0.4 ML in Sterile Water 9.6 ML SLOW IVP SCH (17:52)
[2017-05-31] MEDS: guaiFENesin/DM ER PO PRN (05:15)
--- NOTE | 2017-05-31 09:24 | PDOC.FM ---
- Subjective Subjective: Patient doing well overnight. No CP, N/V, RAM. Breathing on NC overnight, at 2L with 91-92% oxygen saturation. - Objective MAR Reviewed: Yes Vital Signs & Weight: Vital Signs (12 hours) Temp Pulse Resp BP Pulse Ox 05/31/17 08:00 97.5 F L 90 18 125/84 95 05/31/17 06:24 90 16 95 05/31/17 04:00 97.6 F 90 18 118/84 90 L 05/31/17 02:49 87 12 05/31/17 00:00 97.9 F 87 20 105/70 92 L 05/30/17 22:42 79 12 Weight Weight 85.6 g Most Recent Monitor Data Heart Rate from ECG 88 NIBP 103/72 NIBP BP-Mean 79 Respiration from ECG 18 SpO2 97 I&O: 05/30/17 05/31/17 06/01/17 06:59 06:59 06:59 Intake Total 970 1810 Output Total 1035 110 Balance -65 1700 Result Diagrams: 05/30/17 03:44 05/30/17 03:44 <Landon Garnett - Last Filed: 05/31/17 09:19> - Objective Vital Signs & Weight: Vital Signs (12 hours) Temp Pulse Resp BP Pulse Ox Pulse Ox Pulse Ox 05/31/17 13:11 98.1 F 76 16 110/73 96 05/31/17 11:05 79 16 95 05/31/17 10:05 96 81 L 05/31/17 08:00 97.5 F L 90 18 125/84 95 05/31/17 06:24 90 16 95 05/31/17 04:00 97.6 F 90 18 118/84 90 L 05/31/17 02:49 87 12 Weight Weight 85.6 g Most Recent Monitor Data Heart Rate from ECG 88 NIBP 103/72 NIBP BP-Mean 79 Respiration from ECG 18 SpO2 97 I&O: 05/30/17 05/31/17 06/01/17 06:59 06:59 06:59 Intake Total 970 1810 240 Output Total 1035 110 Balance -65 1700 240 Result Diagrams: 05/30/17 03:44 05/30/17 03:44 <Diandra Hirsch - Last Filed: 05/31/17 14:27> Phys Exam - Physical Examination Constitutional: NAD HEENT: PERRLA, moist MMs diffuse mild wheezing Cardiovascular: RRR, no significant murmur Gastrointestinal: soft, non-tender Musculoskeletal: no edema, pulses present Neurological: normal sensation, moves all 4 limbs Psychiatric: normal affect, A&O x 3 <Landon Garnett - Last Filed: 05/31/17 09:19> Dx/Plan (1) Acute respiratory failure with hypoxia Code(s): J96.01 - ACUTE RESPIRATORY FAILURE WITH HYPOXIA Status: Acute Plan: improving, possibly home today or tomorrow Pulmonology consulted, recs greatly appreciated continue to monitor O2 saturation as we decrease support (2) Lobar pneumonia Code(s): J18.1 - LOBAR PNEUMONIA, UNSPECIFIED ORGANISM Status: Acute Plan: continue on azithromycin and rocephin (3) Severe sepsis Code(s): A41.9 - SEPSIS, UNSPECIFIED ORGANISM; R65.20 - SEVERE SEPSIS WITHOUT SEPTIC SHOCK Status: Resolved Plan: seems to have resolved (4) HTN (hypertension) Code(s): I10 - ESSENTIAL (PRIMARY) HYPERTENSION Status: Chronic QualifierTitle: Hypertension type: essential hypertension Qualified Code( s): I10 - Essential (primary) hypertension Plan: stable (5) Hypokalemia Code(s): E87.6 - HYPOKALEMIA Status: Resolved Plan: stable, continue to monitor <Landon Garnett - Last Filed: 05/31/17 09:19> Attending Addendum - Attending Addendum I personally evaluated the patient and discussed the management with Dr. Garnett. I agree with the History, Examination, Assessment and Plan documented above with any addition or exceptions noted below. Patient continues to improve but is still requiring oxygen. Will try to wean today in anticipation of discharge in the coming days. <Diandra Hirsch - Last Filed: 05/31/17 14:27>
[2017-05-31] MEDS: Enoxaparin Sodium 40 MG/0.4 ML SYRINGE SC SCH (09:28)
[2017-05-31] MEDS: Famotidine 20 MG TAB PO SCH ×2 (09:29→20:31)
[2017-05-31] MEDS: Azithromycin 250 MG TAB PO SCH (09:29)
[2017-05-31] MEDS: Hydrochlorothiazide 25 MG TAB PO SCH (09:29)
--- NOTE | 2017-05-31 14:47 | PRG ---
DATE OF SERVICE: 05/31/2017 SUBJECTIVE: She appears to be doing better and had no complaints. OBJECTIVE: VITAL SIGNS: Temperature 98.1, pulse 76, respirations 16, O2 sat 96%, blood pressure 110/73. HEENT: Unremarkable. NECK: Supple. No JVD. CHEST: Clear. CARDIAC: S1 and S2 regular. ABDOMEN: Soft. EXTREMITIES: No edema. ASSESSMENT: 1. Bibasilar pneumonia, secondary to influenza. 2. Acute respiratory distress syndrome, which is resolving. PLAN: 1. Increase activity as tolerated. I think she could probably go home by tomorrow. 2. Change to oral steroids.
[2017-05-31] MEDS: predniSONE 20 MG TAB PO SCH (16:47)
[2017-05-31] MEDS: cefTRIAXone\\ROCEPHIN 1 GM, Syringe 0.4 ML in Sterile Water 9.6 ML SLOW IVP SCH (18:27)
[2017-06-01] MEDS: Melatonin 3 MG TAB PO PRN
[2017-06-01] MEDS: Famotidine 20 MG TAB PO SCH (08:07)
[2017-06-01] MEDS: Hydrochlorothiazide 25 MG TAB PO SCH (08:07)
[2017-06-01] MEDS: predniSONE 20 MG TAB PO SCH ×2 (08:07→15:47)
[2017-06-01] MEDS: Azithromycin 250 MG TAB PO SCH (08:07)
[2017-06-01] MEDS: Enoxaparin Sodium 40 MG/0.4 ML SYRINGE SC SCH (08:07)
[2017-06-01 08:13] VITALS: BP 95/63
[2017-06-01 08:43] VITALS: TEMP 97.5
--- NOTE | 2017-06-01 11:18 | PDOC.FM ---
- Subjective Subjective: Patient doing well sitting up in bed this AM. She is satting at 96% on 1L via NC. Denies CP, SOB, N/V/D. - Objective MAR Reviewed: Yes Vital Signs & Weight: Vital Signs (12 hours) Temp Pulse Resp BP Pulse Ox 06/01/17 10:27 85 16 06/01/17 08:42 97.5 F L 83 18 95/63 96 06/01/17 08:13 88 95/63 06/01/17 08:00 97.5 F L 83 18 96 06/01/17 07:15 95 16 96 06/01/17 00:02 98 16 95 Weight Weight 86.1 kg Most Recent Monitor Data Heart Rate from ECG 88 NIBP 103/72 NIBP BP-Mean 79 Respiration from ECG 18 SpO2 97 I&O: 05/31/17 06/01/17 06/02/17 06:59 06:59 06:59 Intake Total 1810 1180 Output Total 110 Balance 1700 1180 Result Diagrams: 05/30/17 03:44 05/30/17 03:44 <Pj Vásquez C - Last Filed: 06/01/17 11:16> - Objective Vital Signs & Weight: Vital Signs (12 hours) Temp Pulse Resp BP Pulse Ox 06/01/17 10:27 85 16 06/01/17 08:42 97.5 F L 83 18 95/63 96 06/01/17 08:13 88 95/63 06/01/17 08:00 97.5 F L 83 18 96 06/01/17 07:15 95 16 96 06/01/17 00:02 98 16 95 Weight Weight 86.1 kg Most Recent Monitor Data Heart Rate from ECG 88 NIBP 103/72 NIBP BP-Mean 79 Respiration from ECG 18 SpO2 97 I&O: 05/31/17 06/01/17 06/02/17 06:59 06:59 06:59 Intake Total 1810 1180 Output Total 110 Balance 1700 1180 Result Diagrams: 05/30/17 03:44 05/30/17 03:44 <Chi Christiansen - Last Filed: 06/01/17 11:36> Phys Exam - Physical Examination Constitutional: NAD Neck: supple, full ROM Respiratory: no wheezing, no rales Cardiovascular: RRR, no significant murmur Gastrointestinal: soft, non-tender Neurological: moves all 4 limbs Psychiatric: normal affect, A&O x 3 <Pj Vásquez - Last Filed: 06/01/17 11:16> Dx/Plan (1) Acute respiratory failure with hypoxia Code(s): J96.01 - ACUTE RESPIRATORY FAILURE WITH HYPOXIA Status: Resolved Plan: Hypoxia has essentially resolved Monitor oxygen saturation with walking and likely d/c today (2) Lobar pneumonia Code(s): J18.1 - LOBAR PNEUMONIA, UNSPECIFIED ORGANISM Status: Acute Plan: d/c antibiotics at this time (3) HTN (hypertension) Code(s): I10 - ESSENTIAL (PRIMARY) HYPERTENSION Status: Chronic QualifierTitle: Hypertension type: essential hypertension Qualified Code( s): I10 - Essential (primary) hypertension Plan: stable on home medication regimen - Plan Plan: Plan: -discharge today, no need for further antibiotic treatment <Pj Vásquez - Last Filed: 06/01/17 11:16> Attending Addendum - Attending Addendum I personally evaluated the patient and discussed the management with Dr. Vásquez. I agree with the History, Examination, Assessment and Plan documented above with any addition or exceptions noted below. Hopefully able to arrange discharge today. May require home O2. <Chi Christiansen - Last Filed: 06/01/17 11:36>
--- NOTE | 2017-06-01 14:16 | PRG ---
DATE OF SERVICE: 06/01/2017 SUBJECTIVE: I was in the room for about 15 minutes with her on room air oxygen. OBJECTIVE: VITAL SIGNS: Her sats have ranged from 87-91, but predominantly her O2 sat was 90%-91% on room air, sitting at rest. LUNGS: Still has crackles bilaterally. HEART: Regular rhythm. ABDOMEN: Soft. IMPRESSION: Pneumonia with noncardiogenic pulmonary edema mixed in. PLAN: Follow up in a week for a chest radiograph. She should complete 2 weeks of antimicrobial therapy and taper of her prednisone over the next week. CIELO
--- NOTE | 2017-06-02 12:56 | DIS-2 ---
ADMITTING ATTENDING: Dr. Hema Rasmussen DISCHARGE ATTENDING: Dr. Diandra Hirsch RESIDENT: Landon Garnett D.O. DATE OF ADMISSION: 05/22/2017 DATE OF DISCHARGE: 06/01/2017 PRIMARY DIAGNOSES: 1. Acute hypoxic respiratory failure secondary to likely viral pneumonia and sepsis. 2. Lobar pneumonia. 3. Sepsis, resolved. SECONDARY DIAGNOSES: 1. Hypertension. 2. Hypokalemia. CONSULTATIONS: Pulmonology, Dr. Valadez and Dr. Burleson PROCEDURES: Chest x-ray on 05/22/2017 showing multifocal bilateral pulmonary parenchymal consolidati on consistent with atypical pneumonia versus asymmetric edema. Chest x-ray on 05/25/2017 showing no significant change from chest x-ray on 05/22/2017; consolidation s in the right upper and right lower lobes, but also in the left lower lobes. Chest x-ray on 05/27/2017 showing interval improved aeration of the lungs with decreased pulmonary ed sanjay compared to previous images. DISCHARGE MEDICATIONS: 1. Prednisone 20 mg p.o. q.a.m. with breakfast. 2. Verapamil 180 mg p.o. daily. 3. Pravastatin 40 mg p.o. at bedtime. 4. Potassium chloride 10 mEq p.o. daily. 5. Hydrochlorothiazide 25 mg p.o. daily. 6. Naproxen 375 mg p.o. b.i.d. p.r.n. pain. DISCONTINUED MEDICATIONS: None. HISTORY OF PRESENT ILLNESS/HOSPITAL COURSE: The patient is a 66-year-old female who initially presen casandra with shortness of breath and coughing. The patient was leukocytopenic with a white count of 2.7, potassium of 2.6, lactic acid 5.8. ABG; 7.38/37.9/58.9. Vital signs on admission were blood pressu re 98/64, pulse 126, respiratory rate 22, pulse ox 96% on BiPAP, temperature 98.7. The patient was a dmitted to [facility] for further evaluation on BiPAP with a diagnosis of acute hypoxic respiratory failure secondary to community acquired pneumonia versus viral pneumonia. The patient was started on azithr omycin and Rocephin as well as prednisone. Flu test was negative. During the patient's hospitalizat ion she was gradually weaned off of BiPAP and only required it during night sleeping on day 2. On y 3 the patient refused any further BiPAP as she said that it was too uncomfortable on night 3. The patient was placed on Ventimask with oxygen saturation appropriate, greater than 92%. The following day the patient was able to tolerate nasal cannula. On 05/30/2017 the patient was stable for a trans miguel angel to the floor for further evaluation and work with PT and OT to further wean off of supplemental o xygen. At that time the patient was on nasal cannula at 2 liters; however, on 05/31/2017 the patient still required oxygen supplemental when walking in the hallways as her O2 saturation dropped to 82% on nasal cannula 2 liters. On 06/01/2017 the patient was found to be nonlabored in her breathing whe n walking in the hallways, therefore, in conjunction with general administrator the patient was deemed appropri ate to go home with no home supplemental oxygen. During hospitalization the patient was afebrile, additionally her BNP was 120, creatinine was 1.14 on admission and improved to 0.8 on the following day. Lactic acid improved from 5.8 to 1.4 on day 3 o f hospitalization. Potassium was replaced as initially it was 2.6 and was able to maintain fairly no rmal levels and she was sent home on her home potassium dosing. Also of note, white count on dischar ge was 8.3 and bands improved from 32 at its highest point of hospitalization and was 5% 3 days befor e discharge. CONDITION: Stable. DISCHARGE INSTRUCTIONS: 1. Location: Home. 2. Diet: Heart healthy. 3. Activity: As tolerated, but likely need to continue with gradually reintroducing activity into h er daily routine. 4. Followup: Follow up primary care physician in the next 5-[address] Valadez recomme nds chest radiograph follow up in approximately 1 week.
== END 2017-06-01 15:55 | disposition home or self-care (01) | DRG 871 ==
LOC: ERS 15:15 → IMCU/EMU 16:51 → CCU 05-23 16:32 → T4-B 05-30 10:06
PROVIDERS: ADMIT Family Medicine; ATTEND Family Medicine
PROC: 5A09457 Assistance with Respiratory Ventilation, 24-96 Consecutive Hours, Continuous Positive Airway Pressure (ICD-10-PCS; principal; 2017-05-23)
DX: A41.9 Sepsis, unspecified organism (principal); J96.01 Acute respiratory failure with hypoxia; J18.1 Lobar pneumonia, unspecified organism; J12.9 Viral pneumonia, unspecified; R65.20 Severe sepsis without septic shock; I10 Essential (primary) hypertension; F17.210 Nicotine dependence, cigarettes, uncomplicated; E78.5 Hyperlipidemia, unspecified; R73.9 Hyperglycemia, unspecified; E87.6 Hypokalemia; E83.42 Hypomagnesemia
CPT/HCPCS: 36415; 71045; 80048; 80053; 82140; 82553; 82805; 83036; 83605; 83690; 83735; 83880; 84145; 84484; 85025; 87040; 93005; 94640; 94660; 96365; 96366; 96367; 96375; 99406; A4216; C9113; G8978-GP-CI; G8979-GP-CI; G8980-GP-CI; J0456; J0696; J1650; J1940; J2405; J2543; J2920; J2930; J3370; J3475; J3480; J7050; J7506; J7620; P9047; S0028

== ENCOUNTER 2017-07-02 10:27 | Outpatient (CLI) | payer OTHER ==
--- NOTE | 2017-07-02 12:49 | RAD ---
CHEST TWO VIEWS: History: Dyspnea. Comparison: 05-27-17 FINDINGS: There is a right infrahilar airspace opacity. Right perihilar opacity is also present. Chronic interstitial thickening in the lung apices. No pneumothorax. Cardiac silhouette and mediastin al contours are similar. IMPRESSION: Improved aeration of the right lower lobe although a faint opacity persists. Follow up recommended. POS: [facility]
== END 2017-07-02 10:28 | disposition home or self-care (01) ==
LOC: RAD 10:27
PROVIDERS: ATTEND Internal Medicine Critical Care Medicine
DX: R06.00 Dyspnea, unspecified (principal)
CPT/HCPCS: 71046

== ENCOUNTER 2017-09-02 12:48 | Outpatient (CLI) | payer OTHER ==
--- NOTE | 2017-09-02 14:11 | RAD ---
TWO VIEW CHEST: History: Dyspnea. Comparison: 07-02-17 FINDINGS: Lungs appear clear. No infiltrate is identified. Heart size is upper normal. Vascular markings are wi thin normal range. Interstitial markings mildly prominent but stable. Calcified hilar lymph nodes aga in noted. IMPRESSION: Chest findings appear stable with no acute process noted. POS: [facility]
== END 2017-09-02 12:49 | disposition home or self-care (01) ==
LOC: RAD 12:48
PROVIDERS: ATTEND Internal Medicine Critical Care Medicine
DX: R06.00 Dyspnea, unspecified (principal)
CPT/HCPCS: 71046

== ENCOUNTER 2018-06-03 11:07 | Outpatient (CLI) | payer OTHER ==
--- NOTE | 2018-06-03 11:48 | RAD ---
CHEST 2 VIEWS: HISTORY: Dyspnea. COMPARISON: 09/02/2017. FINDINGS: Mild stable increased linear and interstitial markings, evidence for some chronic change. No conflue nt pneumonia, overt edema or pleural effusion, or other acute process. IMPRESSION: No acute intrathoracic disease. Stable chronic changes. Atherosclerosis of the aorta. POS: [facility]
== END 2018-06-03 11:08 | disposition home or self-care (01) ==
LOC: RAD 11:07
PROVIDERS: ATTEND Internal Medicine Critical Care Medicine
DX: R06.00 Dyspnea, unspecified (principal); I70.0 Atherosclerosis of aorta
CPT/HCPCS: 71046

== ENCOUNTER 2020-09-06 10:31 | Outpatient (CLI) | payer MEDICARE, OTHER | END 2020-09-06 10:32 | disposition home or self-care (01) | LOC: BICRAD 10:31 | PROVIDERS: ATTEND Internal Medicine Critical Care Medicine | DX: R06.00 Dyspnea, unspecified (principal) | CPT/HCPCS: 71046 ==

== ENCOUNTER 2021-10-30 10:34 | Outpatient (CLI) | payer MEDICARE, OTHER | END 2021-10-30 10:35 | disposition home or self-care (01) | LOC: RAD 10:34 | PROVIDERS: ATTEND Internal Medicine Critical Care Medicine | DX: R06.00 Dyspnea, unspecified (principal) | CPT/HCPCS: 71046 ==

== ENCOUNTER 2023-02-04 14:56 | Outpatient (CLI) | payer OTHER | END 2023-02-04 14:57 | disposition home or self-care (01) | LOC: RAD 14:56 | PROVIDERS: ATTEND Internal Medicine Critical Care Medicine | DX: R06.00 Dyspnea, unspecified (principal) | CPT/HCPCS: 71046 ==